=== PATIENT | male | born 1985 | race Caucasian/White ===

== ENCOUNTER 2016-11-15 10:37 | Observation (INO) | payer BC ==
--- NOTE | ~2016-11-15 | HP ---
History And Physical [place] [id number] [facility] [place]. [address] NAME: SHEILA NINO : 83 STATUS : ADM Jennifer PAT#: [id number] AGE: 31 ADM/REG DATE : 11/15/16 MR#: [id number] REPORT SERV DATE: 11/15/16 DICTATED BY: DARRICK CRUZ DATE: 11/15/16 REPORT STATUS : Draft TRANSCRIBED BY: VARGAS DATE: 11/15/16 DATE OF ADMISSION: 11/15/2016 CHIEF COMPLAINT: Left flank pain. BRIEF HISTORY OF PRESENT ILLNESS: The patient is a 31-year-old white male, completely healthy, who was working last night and came home and went to bed. Two hours after he fell asleep, he was suddenly awoken from his sleep with flank pain radiating into his left abdominal area. He says the pain was so intense that it was unbearable, then he started having some dry heaving and some nausea, but did not actually vomit. He had some sweats. He denies any fevers or chills. He denied any visible hematuria. No other constitutional symptoms. This patient reports no other problems. REVIEW OF SYSTEMS: Negative except for what is noted above. PAST MEDICAL HISTORY: Completely unremarkable except history of nephrolithiasis in 04/[address] Tom Gibbs in the outpatient setting. PAST SURGICAL HISTORY: Significant for tonsil and adenoidectomy at the age of [age] years. He has a history of spinal meningitis when he was 18 months old. ALLERGIES: NO KNOWN DRUG ALLERGIES. HOME MEDICATIONS: Tylenol and calcium carbonate, i.e., Tums. SOCIAL HISTORY: Does smoke one pack per day for last 14 years. No use of illicit substances. Does drink a few beers per year. FAMILY HISTORY: Father at age 67, was on dialysis at that time. One aunt with cancer but otherwise unremarkable. PHYSICAL EXAMINATION: GENERAL: Obese white male, lying on the gurney, appears to be in no apparent respiratory distress. He is awake and alert. He is oriented. VITAL SIGNS: Blood pressure is 166/70, pulse 75, saturation 97% on room air, and temperature 97.2. HEENT: Head is normocephalic, atraumatic. Pupils are equal, round, and reactive to light. Extraocular muscles are intact. Sclerae anicteric. Conjunctivae normal. Oropharynx without lesions. Poor dentition. Tongue protrusion midline. NECK: Supple. No jugular venous distention. No carotid bruits or thyromegaly is appreciated. No lymphadenopathy in the neck is palpable. HEART: Regular rate rhythm. No murmurs, rubs, or gallops are heard. LUNGS: Clear to auscultation anteriorly and posteriorly without rales, rhonchi, wheezing, or consolidation. ABDOMEN: Morbidly obese. He is soft in the anterior portion. No CVA tenderness is noted, History And Physical [address] [address] NAME: SHEILA NINO : [birth year] STATUS : ADM Jennifer PAT#: [id number] AGE: 31 ADM/REG DATE : 11/15/16 MR#: [id number] REPORT SERV DATE: 11/15/16 DICTATED BY: DARRICK CRUZ DATE: 11/15/16 REPORT STATUS : Draft TRANSCRIBED BY: VARGAS DATE: 11/15/16 but he just received pain medications. Does complain of some nonspecific pain to palpation. EXTREMITIES: Without cyanosis, clubbing, or edema. NEUROLOGICAL: Seems to be grossly intact. LABORATORY DATA: CT of the abdomen and pelvis: Mild edematous appearance to the left kidney with mild caliectasis and some edema around the ureter consistent with possibly passage of a stone, infection or pyelonephritis cannot be ruled out. Electrolyte panel is completely normal with an exception of glucose of 167. Liver function studies: Amylase and lipase were all normal. White count is 13,000, rest of the CBC was unremarkable. No left shift. Urinalysis: Large amount of blood, but otherwise unremarkable. IMPRESSION: 1. Acute nephrolithiasis with possible obstruction. 2. Obesity. PLAN: The patient will be admitted for observation. Aggressive IV fluids will be given. Pain control will be given. Urology to see. I have discussed his care with Dr. Gibbs, who will see him in the morning, and if he is not able to pass the stone, he may need further cystoscopy. The patient will be started on Flomax as well. The patient remains a full code. [facility]/VARGAS Darrick Cruz M.D. / [id number] CC: Tiffany Mayo Jr., M.D.
--- NOTE | ~2016-11-15 | DS ---
Discharge Summary [facility] [address] [place]. [address] NAME: SHEILA NINO : 83 STATUS : DIS Jennifer PAT#: [id number] AGE: 31 ADM/REG DATE : 11/15/16 MR#: [id number] REPORT SERV DATE: 11/17/16 DICTATED BY: YULISSA RICE DATE: 11/16/16 REPORT STATUS : Draft TRANSCRIBED BY: MODL DATE: 11/16/16 ADMISSION DATE: 11/15/2016 DISCHARGE DATE: 11/16/2016 PRINCIPAL DIAGNOSIS: Nephrolithiasis. SECONDARY DIAGNOSIS: Hypertension. HISTORY OF PRESENT ILLNESS: Please see Dr. Cruz's dictation on 11/15/2016. HOSPITAL COURSE: The patient admitted with a renal colic seen with hematuria. CT was negative. Seemed to have passed a kidney stone. Seen by urology, no further intervention. Blood pressure was high however. While Flomax had been suggested, an alpha agustín was felt to be more appropriate given sustained blood pressures greater than 160/100. He was discharged on Hytrin 2 mg q.h.s. Following up with Dr. Gupta on first available appointment and kaylah Chang, in four to six weeks. [facility]/VARGAS Yulissa Rice M.D. / [id number] CC: Tiffany Mayo III, M.D. David Denman, M.D.
--- NOTE | ~2016-11-15 | CN ---
Consultation Report [facility] [address] [place] [place]. [address] NAME: SHEILA JOHNSON : 83 STATUS : ADM Jennifer PAT#: [id number] AGE: 31 ADM/REG DATE : 11/15/16 MR#: [id number] REPORT SERV DATE: 11/16/16 DICTATED BY: TOM GIBBS JR. DATE: 11/16/16 REPORT STATUS : Draft TRANSCRIBED BY: VARGAS DATE: 11/16/16 CONSULTATION NOTE DATE OF CONSULTATION: 11/16/2016 CHIEF COMPLAINT: Left flank pain and left hydronephrosis. HISTORY OF PRESENT ILLNESS: Mr. Johnson is a 31-year-old male patient known to me in the past with a history of kidney stone x1. He passed that stone at that time with very little difficulties. He presented to the emergency room yesterday with acute onset left flank pain and what appeared to be hydronephrosis on the left side without an apparent stone seen. He had dilation of the ureter as well. The pain was intractable, and he was unable to be controlled with IV pain medicine in the emergency room, therefore it was decided that he would be admitted to the hospital. He did not have fever or chills. He had some nausea, but no vomiting. He has had no hematuria. REVIEW OF SYSTEMS: A 10 system review was performed, and was negative other than that stated above. PAST MEDICAL HISTORY: Unremarkable other than the above-mentioned nephrolithiasis. PAST SURGICAL HISTORY: Significant for tonsillectomy, adenoidectomy at [age] years old, spinal meningitis when he was 18 months old. ALLERGIES: NONE KNOWN. HOME MEDICATIONS: Tylenol, calcium carbonate. SOCIAL HISTORY: Smokes one pack of cigarettes a day for 14 years. He does not use illicit drugs or use alcohol to abusive levels. FAMILY HISTORY: Father at 67 on dialysis, and an aunt with cancer of unknown type. PHYSICAL EXAMINATION: VITAL SIGNS: He is currently afebrile. Vital signs are stable. HEENT: Normocephalic and atraumatic. NECK: Symmetric. CHEST: Clear to auscultation bilaterally. HEART: Regular rate and rhythm. ABDOMEN: Soft, nontender, and nondistended without palpable hernias. GENITOURINARY: Deferred. EXTREMITIES: Warm without cyanosis, clubbing, or edema. GENERAL: He is a well-nourished, well-developed male, in no acute distress. Consultation Report [place] [id number] [facility] [address] NAME: SHEILA JOHNSON : 83 STATUS : ADM Jennifer PAT#: [id number] AGE: 31 ADM/REG DATE : 11/15/16 MR#: [id number] REPORT SERV DATE: 11/16/16 DICTATED BY: TOM GIBBS JR. DATE: 11/16/16 REPORT STATUS : Draft TRANSCRIBED BY: VARGAS DATE: 11/16/16 X-RAY: CT scan with the above was reviewed as per the above. There is some dilatation of the ureter; however, mild dilatation of the collecting system. There is no apparent stone in the ureter, and the bladder appeared normal along with the right collecting system. ASSESSMENT: Dilation of the left ureter and mild hydronephrosis with likely recently passed stone. RECOMMENDATION: Since he is pain free today, I have recommended that he go home, continue hydration, and pain medicine as needed. I will see him back in six weeks for a 24 hour urine testing as this is his second stone episode and will consider reimaging if his pain returns. [facility]/VARGAS Tom Gibbs Jr., M.D. / [id number] CC: Darrick Cruz M.D.
[2016-11-15 10:14] LABS: BASOPHILS 0.3 %; BASOPHILS ABSOLUTE 0.04 10/3/uL (0.0-0.16); EOSINOPHILS 1.4 %; EOSINOPHILS ABSOLUTE 0.18 10/3/uL (0.0-0.53); ER CBC TAT 0 Hrs 12 Mins; IMMATURE GRANULOCYTES 0.5 %; IMMATURE GRANULOCYTES ABSOLUTE 0.07 10/3/uL (0.0-0.11); LYMPHOCYTES 19.1 %; LYMPHOCYTES ABSOLUTE 2.52 10/3/uL (0.67-4.30); MANUAL DIFF NO %; MEAN CORPUS HGB CONC 34.7 g/dL (32.0-36.0); MEAN CORPUSCULAR HEMOGLOB 31.4 pg (26.0-34.0); MEAN CORPUSCULAR VOLUME 90.6 fL (80-100); MEAN PLATELET VOLUME 10.8 fL (9.2-13.0); MONOCYTES 7.2 %; MONOCYTES ABSOLUTE 0.95 10/3/uL (0.21-1.20); NEUTROPHILS 71.5 %; NEUTROPHILS ABSOLUTE 9.44 10/3/uL (2.02-8.40); PLATELET COUNT 203 10/3/uL (150-400); RBC DISTRIBUTION WIDTH 13.6 % (12.0-16.0); RED CELL COUNT 5.41 10/6/uL (4.7-6.1); WHITE BLOOD CELLS 13.2 10/3/uL (4.5-10.5)
[2016-11-15 10:23] LABS: ASCORBIC ACID (UR NOT ORDER) NEG (NEG); BILIRUBIN, URINE NEGATIVE (NEG); ER URINALYSIS TAT 0 Hrs 00 Mins; KETONE, URINE NEGATIVE (NEG); LEUKOCYTE ESTERASE(NOT OR NEG (NEG); NITRITE (URINE) NEG (NEG); WBC (NOT ORDERED) (RFLEX) 2 (0-5)
[2016-11-15 10:28] LABS: A/G RATIO 0.9 (0.7-1.9); ALBUMIN 3.8 G/DL (3.5-5.0); ALKALINE PHOSPHATASE 67 U/L (45-117); BUN (BLOOD UREA NITROGEN) 13 MG/DL (6-23); CALCIUM, SERUM 8.8 MG/DL (8.5-10.4); CHLORIDE, SERUM 104 MMOL/L (96-112); CO2 (CARBON DIOXIDE) 26 MMOL/L (24-34); CREATININE 1.06 MG/DL (0.70-1.30); GFR AFRICAN AMERICAN 107 ML/MIN (>=60); GFR NON AFRICAN AMERICAN 92 ML/MIN (>=60); GLOBULIN 4.1 G/DL (2.5-4.1); POTASSIUM, SERUM 3.8 MMOL/L (3.5-5.3); SGOT(AST) 25 U/L (5-40); SGPT(ALT) 49 U/L (5-65); SODIUM, SERUM 139 MMOL/L (135-148); TOTAL BILIRUBIN 0.8 MG/DL (0-1.2); TOTAL PROTEIN 7.9 G/DL (6.0-8.5)
[2016-11-15 10:29] LABS: GLUCOSE, SERUM 167 MG/DL (60-99)
[2016-11-15] MEDS ORDERED: ACET500CAP PO (13:53)
[2016-11-15] MEDS ORDERED: ROLAIDS PO (13:54)
[2016-11-16 04:51] LABS: BASOPHILS 0.3 %; BASOPHILS ABSOLUTE 0.03 10/3/uL (0.0-0.16); EOSINOPHILS ABSOLUTE 0.36 10/3/uL (0.0-0.53); HEMATOCRIT 45.2 % (40.0-51.0); HEMOGLOBIN 15.4 g/dL (13.6-17.8); IMMATURE GRANULOCYTES 0.4 %; IMMATURE GRANULOCYTES ABSOLUTE 0.05 10/3/uL (0.0-0.11); LYMPHOCYTES 29.4 %; LYMPHOCYTES ABSOLUTE 3.52 10/3/uL (0.67-4.30); MEAN CORPUS HGB CONC 34.1 g/dL (32.0-36.0); MEAN CORPUSCULAR VOLUME 91.1 fL (80-100); MEAN PLATELET VOLUME 11.2 fL (9.2-13.0); MONOCYTES 9.6 %; MONOCYTES ABSOLUTE 1.15 10/3/uL (0.21-1.20); NEUTROPHILS 57.3 %; NEUTROPHILS ABSOLUTE 6.86 10/3/uL (2.02-8.40); PLATELET COUNT 192 10/3/uL (150-400); RBC DISTRIBUTION WIDTH 13.8 % (12.0-16.0); RED CELL COUNT 4.96 10/6/uL (4.7-6.1)
[2016-11-16 04:54] LABS: MANUAL DIFF NO %
[2016-11-16 05:06] LABS: ALBUMIN 3.1 G/DL (3.5-5.0); BUN (BLOOD UREA NITROGEN) 15 MG/DL (6-23); CALCIUM, SERUM 8.6 MG/DL (8.5-10.4); CHLORIDE, SERUM 111 MMOL/L (96-112); CO2 (CARBON DIOXIDE) 26 MMOL/L (24-34); CREATININE 0.96 MG/DL (0.70-1.30); GFR AFRICAN AMERICAN 121 ML/MIN (>=60); GFR NON AFRICAN AMERICAN 104 ML/MIN (>=60); PHOSPHORUS, SERUM 3.6 MG/DL (2.5-4.5)
[2016-11-16 05:16] LABS: GLUCOSE, SERUM 118 MG/DL (60-99); SODIUM, SERUM 147 MMOL/L (135-148)
[2016-11-16] MEDS ORDERED: HYT2 PO (12:42)
== END 2016-11-16 13:03 | disposition home or self-care (01) ==
LOC: ER 10:37 → CDU1 14:39
PROVIDERS: Emergency Medicine; Internal Medicine
DX: N13.2 Hydronephrosis with renal and ureteral calculous obstruction (principal); N28.82 Megaloureter; I10 Essential (primary) hypertension; E66.9 Obesity, unspecified; F17.210 Nicotine dependence, cigarettes, uncomplicated; Z98.890 Other specified postprocedural states; Z79.899 Other long term (current) drug therapy
CPT/HCPCS: 74176; 80053; 80069; 81001; 85025; 96374; 96375; 96376; 99285; A9270-GY; G0378; J1170; J1885; J2405